=== PATIENT | male | born 1955 | race Caucasian/White ===

== ENCOUNTER → 2022-05-10 10:21 | Outpatient (BNVA) | payer MEDICARE, OTHER, SELFPAY | PROVIDERS: Visit Provider Emergency Medicine | DX: R09.89 Other specified symptoms and signs involving the circulatory and respiratory systems (principal) | CPT/HCPCS: 87400 ==

== ENCOUNTER 2023-06-11 09:30 | Emergency (ER) | payer MEDICARE, OTHER, SELFPAY ==
[2023-06-11 10:01] VITALS: BP 144/77; PULSE 74; RESP 16; TEMP 37.3; O2SAT 97; BMI 34.8
[2023-06-11 11:00] VITALS: O2SAT 97
--- NOTE | 2023-06-11 11:18 | ED_ITS ---
HPI - COVID General: Chief Complaint: COVID symptoms Stated Complaint: sore throat Time Seen by Provider: 06/11/23 09:31 History of Present Illness: Patient presents to the ER with sore throat cough congestion fever and chills for the last 3 days. Patient reports his temperature was 101 this a.m. and he took Tylenol. Patient states his had the same thing and now he has it. Patient denies getting sick very often. Patient has no other complaints at this time and is nontoxic in appearance COVID Results: No Data to Display Review of Systems General: Reports: 10 or more systems reviewed and unremarkable except in HPI and below PFSH ED PFSH: Surgical History History of knee surgery Social History Smoking and tobacco/nicotine status: former use of tobacco/nicotine Physical Exam Const: COMMON NORMALS: no acute distress, average body habitus, patient oriented x3, no limitations, healthy appearing, alert and well nourished HENMT: COMMON NORMALS: normocephalic, atraumatic, hearing grossly normal bilaterally, external ears normal, EAC's normal, TM's normal bilaterally, Normal external nose present, Normal nasal mucous membranes and turbinates present and moist oral mucous membranes; oropharynx not normal (Mildly erythematous with postnasal drip) HEAD & SCALP: normocephalic and atraumatic NOSE: Normal external nose present and Normal nasal mucous membranes and turbinates present EXTERNAL EAR: Yes external ears normal EXTERNAL AUDITORY CANAL: EAC's normal TYMPANIC MEMBRANE: TM's normal bilaterally Eye: COMMON NORMALS: Equal, round and reactive pupils present, EOMs intact bilaterally, conjunctivae normal and no scleral icterus CONJUNCTIVA: Yes conjunctivae normal PUPIL: Yes Equal, round and reactive pupils present Neck/C-Spine: COMMON NORMALS: full ROM, no lymphadenopathy, supple, no meningeal signs, no JVD and Thyroid normal THYROID: Thyroid normal Chest: COMMONS NORMALS: normal inspection of the chest and normal palpation of entire chest wall Resp: COMMON NORMALS: normal respiratory effort, No retractions, No use of accessory muscles and clear to auscultation bilaterally AUSCULTATION: clear to auscultation bilaterally Cardio: COMMON NORMALS: no JVD, regular rate, regular rhythm, S1 normal heart sound present, S2 normal heart sound present, No gallops present (Cardio), No clicks present (Cardio), No murmurs present (Cardio) and No rub (Cardio) RATE: regular rate RHYTHM: regular rhythm HEART SOUNDS: S1 normal heart sound present and S2 normal heart sound present Neuro: COMMON NORMALS: patient oriented x3 SENSORIUM/ORIENTATION: Yes alert MENINGEAL SIGNS: Yes no meningeal signs Course Vital Signs: Vital signs: Vital Signs Temperature 99.1 F 06/11/23 10:01 Pulse Rate 74 06/11/23 10:01 Respiratory Rate 16 06/11/23 10:01 Blood Pressure 144/77 06/11/23 10:01 Pulse Oximetry 97 06/11/23 11:00 Oxygen Delivery Me thod Room Air 06/11/23 11:00 MDM - COVID Medical Decision Making Physical exam was performed strep swab was obtained which was negative. Patient be diagnosed with upper respiratory infection viral patient will be referred back to his family practice physician in 7 days for further evaluation and treatment. Symptomatic treatment is recommended. Differential Diagnosis Likely other viral infection; Unlikely COVID 19, influenza, bacterial infection, pneumonia, copd exacerbation, pulmonary embolism, NSTEMI/STEMI, CHF exacerbation, stroke or overdose/intoxication Medical Records I reviewed the patient's medical records. Lab Data I reviewed the patient's lab results. Laboratory Results Group A Strep Rapid Negative (Negative) 06/11/23 11:18 No Data to Display No radiology studies performed this visit Discharge Plan Discharge Patient Disposition: Home Clinical Impression: Upper respiratory infection Condition: Stable Prescriptions: No Action allopurinol 300 mg tablet 150 mg PO DAILY atenolol 50 mg tablet 50 mg PO DAILY epinephrine 0.3 mg/0.3 mL auto-injector 0.3 mg IM Q4H PRN triamterene-hydrochlorothiazid 75-50 mg tablet 1 tab PO DAILY lisinopril 40 mg tablet 40 mg PO DAILY omeprazole 20 mg capsule,delayed release(DR/EC) 20 mg PO DAILY tadalafil 5 mg tablet 5 mg PO DAILY loratadine [Allergy Relief (loratadine)] 10 mg tablet 10 mg PO DAILY clobetasol 0.05 % ointment 1 applic topical BID 14 Days Qty: 45 1RF Rx Instructions: Apply to affected area no more than 2 weeks per month. Not for face or skin folds. azithromycin [Zithromax] 500 mg tablet See Rx Instructions PO .COMPLEX Qty: 3 0RF Rx Instructions: For 250 mg dose pack: take 500 mg today (day 1), then 250 mg for 4 days (days 2-5) PO prednisone 20 mg tablet 60 mg PO DAILY 5 Days Qty: 15 0RF albuterol sulfate 90 mcg/actuation HFA aerosol inhaler 2 inh inhalation Q4H PRN (Reason: shortness of breath or wheezing) Qty: 6.7 0RF Discharge Orders: Discharge ED (Routine); Ordered 06/11/23 Ordered By: Chinedu White Patient Instructions: Upper Respiratory Infection - Adult Activity Restrictions/Additional Instructions: Please continue to treat your symptoms. Please follow-up with your family practice physician within the next 7 to 10 days for further evaluation and treatment as needed. Coding Level of Care Code ED Clinical Practitioner for Marianna Merino
[2023-06-11 11:59] LABS: Rapid Strep A Test Negative (Negative)
[2023-06-11 12:08] VITALS: PULSE 75; RESP 18; O2SAT 96
== END 2023-06-11 12:09 | disposition home or self-care (01) ==
PROVIDERS: Emergency Provider Emergency Medicine
DX: J06.9 Acute upper respiratory infection, unspecified (principal); Z87.891 Personal history of nicotine dependence
CPT/HCPCS: 87081; 87880; 99283

== ENCOUNTER → 2025-03-20 14:15 | Outpatient (BNVA) | payer OTHER, MEDICARE, SELFPAY | PROVIDERS: Visit Provider Nurse Practitioner Family | DX: L82.1 Other seborrheic keratosis (principal); L57.8 Other skin changes due to chronic exposure to nonionizing radiation; Z08 Encounter for follow-up examination after completed treatment for malignant neoplasm; Z85.828 Personal history of other malignant neoplasm of skin; L57.0 Actinic keratosis | CPT/HCPCS: 17000; 99213 ==

== ENCOUNTER → 2025-06-03 15:36 | Outpatient (BNVA) | payer OTHER, SELFPAY | PROVIDERS: Visit Provider Nurse Practitioner Family | DX: L57.8 Other skin changes due to chronic exposure to nonionizing radiation (principal); Z08 Encounter for follow-up examination after completed treatment for malignant neoplasm; Z85.828 Personal history of other malignant neoplasm of skin; L82.0 Inflamed seborrheic keratosis; Z78.9 Other specified health status; L57.0 Actinic keratosis | CPT/HCPCS: 17000; 17110; 99213 ==